=== PATIENT | male | born 1935 | race Caucasian/White ===

== ENCOUNTER 2018-02-15 07:06 | Day surgery (SDC) | payer MEDICARE, BC ==
--- NOTE | 2018-02-09 14:49 | HP ---
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 The pain has been intense, at a pain scale of 9 to 10. He has been treated with rest, pain medicines, all of which have failed. Also, the patient's current functional activity is less than 10% of normal. He is barely able to move from his bed to chair to bathroom, needs major assistance for any type of activity. The patient denies any radicular pain or paresthesias to the lower extremity. The patient recently underwent a MRI evaluation which disclosed an acute compression fracture of L1. He is now being brought in for a surgical kyphoplasty and fracture stabilization of L1. Procedure has been outlined to him and his family. Handouts were given. They understand the procedure and have consented to it. ALLERGIES: To statins and also morphine. CURRENT MEDICATIONS: Include Tylenol No. 3, vitamins, Celexa, Zestril, colestipol, Norvasc, Nitrostat, Klonopin, Xanax, Lasix, Antivert, Protonix, Proventil, also multivitamins, calcium supplements. PAST MEDICAL HISTORY: He has a history of hypertension. He has had increased cholesterol. Also noted to have diabetes type 2 along with history of myocardial infarctions with previous heart stents. PAST SURGICAL HISTORY: Positive. He has had right total knee replacement, right shoulder surgery, cardiac stents x3, tonsillectomy, and also notes that with the anesthesia, he is very slow for recovery, especially after any type of general anesthesia. Denies any bleeding history or blood clot history. SOCIAL HISTORY: He is a nonsmoker. Alcohol is very occasional and rarely. PHYSICAL EXAMINATION: GENERAL: Today reveals a well-developed, well-nourished, obese, 82-year-old male in severe distress. HEAD, EYES, EARS, NOSE, AND THROAT: Normocephalic. NECK: Supple. CHEST: Clear. COR: Regular rate. ABDOMEN: Soft. : Intact. NEUROLOGIC: Examination of lumbar spine reveals severe pain on direct pressure and palpation over the thoracolumbar junction area. The patient has positive paravertebral muscle spasm. He has negative nerve tension signs. RADIOLOGY: The patient underwent MRI evaluation on 02/09/2018, which disclosed acute compression fracture of L1. ASSESSMENT: Acute osteoporotic compression fracture, L1, intractable pain. PLAN: The patient is to undergo surgical kyphoplasty and fracture stabilization. Procedure has been outlined to him and his family. They understand the procedure and have consented to it. MMBENJI /[id number] WALLY
[~2018-02-15 07:06] MED LIST: Lactated Ringers 1,000 ML IV SCH; Lidocaine 1%/Sod Bicarbonate in NS 8.4% 1 ML Syringe IDERM PRN; Sodium Chloride 0.9% 10 ML Syringe FLUSH PRN
[2018-02-15] MEDS ORDERED: Lidocaine 1% with EPINEPHrine 1:100,000 20 ML MDV ONE ×2 (07:20→08:34)
[2018-02-15] MEDS ORDERED: Iopamidol 612 MG/ML 50 ML SDV ONE (07:21)
[2018-02-15] MEDS ORDERED: Albuterol 0.083% 2.5 MG/3 ML Neb Soln NEB ONE (07:25)
[2018-02-15] MEDS ORDERED: Sodium Chloride 0.9% 50 ML SDV ONE (07:27)
[2018-02-15] MEDS ORDERED: Acetaminophen/Codeine 300-30 MG Tab PO PRN (07:47)
[2018-02-15] MEDS ORDERED: Ketorolac 15 MG/ML SDV IVPUSH PRN (07:47)
[2018-02-15] MEDS ORDERED: Vancomycin 1 GM SDV ONE (07:47)
[2018-02-15] MEDS ORDERED: Propofol 200 MG/20 ML SDV ONE (07:48)
[2018-02-15] MEDS ORDERED: Ketamine 500 mg/10 ML MDV ONE (07:49)
[2018-02-15] MEDS ORDERED: fentaNYL 100 MCG/2 ML SDV ONE (07:49)
[2018-02-15] MEDS ORDERED: Lidocaine 1% 6 ML ONE (08:19)
[2018-02-15] MEDS ORDERED: Sodium Chloride 0.9% 100 ML ONE (08:22)
[2018-02-15] MEDS ORDERED: ceFAZolin 1 GM Vial ONE (08:25)
--- NOTE | 2018-02-15 08:51 | PCM.PREANE ---
Preanesthetic Assessment - Anesthesia/Transfusion/Family Hx Anesthesia History: Prior Anesthesia Reaction Type of Anesthesia Reaction: Excessive Somnolence Other Type of Anesthesia Reaction Comment: "Difficulty with breathing tube" Very sore throat. Family History of Anesthesia Reaction: No - Review of Systems General: Other (Very Hard of hearing. Bilateral hearing aids. ) Pulmonary: No Symptoms, Other (Sleep Apnea. Uses CPAP. ) Cardiovascular: No Symptoms, Other (History of stents/CAD. Follows with cardiology. Denies chest pain. ) Gastrointestinal: No Symptoms, Other (GERD, controlled. ) Neurological: Difficulty Walking (Back/knee pain. ), Gait Disturbance (Uses a walker. ) Other: Reports: Thyroid Problems, Depression - Physical Assessment NPO Status Date: 02/15/18 NPO Status Time: 07:32 O2 Sat by Pulse Oximetry: 90 Respiratory Rate: 18 Vital Signs: Last Vital Signs Temp 36.1 C 02/15/18 07:08 Pulse 75 02/15/18 07:08 Resp 18 02/15/18 07:08 BP 142/71 H 02/15/18 07:08 Pulse Ox 90 L 02/15/18 07:08 Height: 1.83 m Weight: 116.6 kg ASA Class: 3 Mental Status: Alert & Oriented x3 Airway Class: Mallampati = 3 Dentition: Reports: Normal Dentition Thyro-Mental Finger Breadths: 3 Mouth Opening Finger Breadths: 3 ROM/Head Extension: Full Lungs: Decreased Breath Sounds, Wheezing (Noted in upper lobes. Resolved with breathing treatment. ) - Lab Values: Laboratory Last Values POC Glucose 108 mg/dL (83-110) 02/15/18 07:25 - Allergies Allergies/Adverse Reactions: Allergies Allergy/AdvReac Type Severity Reaction Status Date / Time hydrocodone AdvReac Anxiety Verified 02/15/18 08:04 morphine AdvReac Vomiting Verified 02/15/18 08:04 Oekezhd-Ntq-Agy Reductase AdvReac Muscle Verified 02/15/18 08:04 Inhibitor Aches - Anesthesia Plan Beta Louis: Metoprolol Med Last Dose Date: 02/15/18 Med Last Dose Time: 07:30 - Acknowledgements Anesthesia Type Planned: MAC Pt an Appropriate Candidate for the Planned Anesthesia: Yes Alternatives and Risks of Anesthesia Discussed w Pt/Guardian: Yes Pt/Guardian Understands and Agrees with Anesthesia Plan: Yes PreAnesthesia Questionnaire Cardiovascular History: Reports: CAD, High Cholesterol, Hypertension, PTCA Respiratory History: Reports: Sleep Apnea Gastrointestinal History: Reports: Diverticulosis, Gastritis, GERD, Hiatal Hernia Genitourinary History: Reports: None [employer]IAN History: Reports: None Musculoskeletal History: Reports: Osteoarthritis, Other (See Below) Other Musculoskeletal History: restless leg syndrome, bursitis, knee injections Neurological History: Reports: None Psychiatric History: Reports: Depression, Panic Attack, Other (See Below) Other Psychiatric History: insomnia Endocrine/Metabolic History: Reports: Diabetes, Type II, Hypothyroidism Hematologic History: Reports: None Immunologic History: Reports: None Oncologic (Cancer) History: Reports: None Dermatologic History: Reports: None - Past Surgical History HEENT Surgical History: Reports: Adenoidectomy, Tonsillectomy Cardiovascular Surgical History: Reports: None Respiratory Surgical History: Reports: None GI Surgical History: Reports: Colonoscopy, EGD Female Surgical History: Reports: None Male Surgical History: Reports: None Endocrine Surgical History: Reports: None Neurological Surgical History: Reports: None Musculoskeletal Surgical History: Reports: Knee Replacement Oncologic Surgical History: Reports: None Dermatological Surgical History: Reports: None - SUBSTANCE USE Smoking Status *Q: Never Smoker Recreational Drug Use History: No - HOME MEDS Home Medications: Home Meds ALPRAZolam [Xanax] 0.5 mg PO DAILY PRN 02/14/18 [History] Acetaminophen with Codeine [Tylenol with Codeine #3 Tablet] 1 - 2 tab PO Q4H PRN 02/14/18 [History] Aspirin [Adult Aspirin] 81 mg PO DAILY 02/14/18 [History] Calcium Carbonate/Vitamin D3 [Calcium 600 + Vit D 400 Softgl] 1 tab PO DAILY [History] Citalopram [Citalopram HBr] 30 mg PO DAILY 02/14/18 [History] Colestipol [Colestipol HCl] 4 gm PO DAILY 02/14/18 [History] Cyclobenzaprine [Flexeril] 10 mg PO TID 02/14/18 [History] Docusate Sodium [Colace] 100 mg PO BEDTIME 02/14/18 [History] Estazolam 2 mg PO BEDTIME 02/14/18 [History] Flaxseed Oil [Flax Oil] 1,000 mg PO QPM 02/14/18 [History] Flaxseed Oil [Flaxseed] 1,000 mg PO QAM 02/14/18 [History] Furosemide [Lasix] 20 mg PO DAILY 02/14/18 [History] Glimepiride [Amaryl] 1 mg PO DAILY 02/14/18 [History] Glucosamine HCl/Chondr Dukes A Na [Osteo Bi-Flex Caplet] 1 tab PO DAILY 02/14/18 [ History] Lisinopril 10 mg PO DAILY 02/14/18 [History] Magnesium Oxide 250 mg PO DAILY 02/14/18 [History] Meclizine [Antivert] 25 mg PO TID PRN 02/14/18 [History] Metoprolol Succinate 100 mg PO DAILY 02/14/18 [History] Nitroglycerin [Nitrostat] 0.4 mg SL ASDIRECTED PRN 02/14/18 [History] [place]-3 Fatty Acids [[place]-3] 400 mg PO DAILY 02/14/18 [History] Saw/Vit E/Sod Lisa/Lyc/Beta/Pyg [Prostate Health Caplet] 2 mg PO BEDTIME [History] Simethicone 125 mg PO ASDIRECTED PRN 02/14/18 [History] amLODIPine Besylate [Norvasc] 5 mg PO DAILY 02/14/18 [History] clonazePAM [Clonazepam] 1 mg PO BEDTIME 02/14/18 [History] - CURRENT (IN HOUSE) MEDS Current Meds: Current Medications Acetaminophen/Codeine Phosphate (Tylenol With Codeine No.3 300mg/30mg) 1 - 2 tab PO Q4H PRN PRN Reason: Pain Lactated Ringer's (Ringers, Lactated) 1,000 mls @ 125 mls/hr IV ASDIRECTED PAYAL Stop: 02/15/18 23:00 Last Admin: 02/15/18 07:28 Dose: 125 mls/hr Ketorolac Tromethamine (Toradol) 15 mg IVPUSH Q6H PRN PRN Reason: Pain (severe 7-10) Lidocaine/Sodium Bicarbonate (Buffered Lidocaine 1% In Ns 8.4%) 0.25 ml IDERM ONETIME PRN PRN Reason: Prior to IV Start Stop: 02/15/18 18:00 Sodium Chloride (Saline Flush) 10 ml FLUSH ASDIRECTED PRN PRN Reason: Keep Vein Open Stop: 02/15/18 18:00 Discontinued Medications Albuterol (Proventil Neb Soln) 2.5 mg NEB ONETIME ONE Stop: 02/15/18 07:26 Last Admin: 02/15/18 07:46 Dose: 2.5 mg Cefazolin Sodium (Ancef) Confirm Administered Dose 3 gm .ROUTE .STK-MED ONE Stop: 02/15/18 08:26 Fentanyl (Sublimaze) Confirm Administered Dose 100 mcg .ROUTE .STK-MED ONE Stop: 02/15/18 07:50 Lidocaine HCl (Xylocaine-Mpf 1%) Confirm Administered Dose 6 mls @ as directed .ROUTE .STK-MED ONE Stop: 02/15/18 08:20 Sodium Chloride (Normal Saline) Confirm Administered Dose 100 mls @ as directed .ROUTE .STK-MED ONE Stop: 02/15/18 08:23 Iopamidol (Isovue-300 (61%)) Confirm Administered Dose 50 ml .ROUTE .STK-MED ONE Stop: 02/15/18 07:22 Ketamine HCl (Ketalar) Confirm Administered Dose 500 mg .ROUTE .STK-MED ONE Stop: 02/15/18 07:50 Lidocaine/Epinephrine (Xylocaine 1% With Epinephrine 1:100,000) Confirm Administered Dose 20 ml .ROUTE .STK-MED ONE Stop: 02/15/18 07:21 Lidocaine/Epinephrine (Xylocaine 1% With Epinephrine 1:100,000) Confirm Administered Dose 20 ml .ROUTE .STK-MED ONE Stop: 02/15/18 08:35 Propofol (Diprivan 20 Ml) Confirm Administered Dose 600 mg .ROUTE .STK-MED ONE Stop: 02/15/18 07:49 Sodium Chloride (Normal Saline) Confirm Administered Dose 50 ml .ROUTE .STK-MED ONE Stop: 02/15/18 07:28 Vancomycin HCl (Vancomycin) Confirm Administered Dose 1 gm .ROUTE .STK-MED ONE Stop: 02/15/18 07:48
[2018-02-15] MEDS ORDERED: Ondansetron 4 MG/2 ML SDV ONE (08:52)
--- NOTE | 2018-02-15 09:13 | PCM48HPAN ---
Post Anesthesia Note - EVALUATION WITHIN 48HRS OF ANESTHETIC Vital Signs in Normal Range: Yes Patient Participated in Evaluation: Yes Respiratory Function Stable: Yes Airway Patent: Yes Cardiovascular Function Stable: Yes Hydration Status Stable: Yes Pain Control Satisfactory: Yes Nausea and Vomiting Control Satisfactory: Yes Mental Status Recovered: Yes Pulse Rate: 64 SaO2: 94 Resp Rate: 17 Temperature: 37.7 C Blood Pressure: 133/60
--- NOTE | 2018-02-15 10:22 | CR ---
Lumbar spine: Four fluoroscopic spot views were obtained centered to the thoracolumbar junction. Study obtained utilizing C-arm device. Exam shows vertebroplasty procedure within L1. Fluoroscopy time given as 369.6 seconds. Impression: 1. Study showing vertebroplasty procedure. Diagnostic code #2
--- NOTE | 2018-02-16 08:28 | OR ---
DATE OF OPERATION: 02/15/2018 SURGEON: Srinivasa Bentley MD PREOPERATIVE DIAGNOSIS: Acute compression fracture, osteoporotic L1 with intractable pain. POSTOPERATIVE DIAGNOSIS: Acute compression fracture, osteoporotic L1 with intractable pain. ANESTHESIA: Sedation with local. OPERATION PERFORMED: 1. Kyphoplasty fracture stabilization of L1 vertebral body. 2. Biopsy of L1 vertebral body. DESCRIPTION OF PROCEDURE: The patient was taken to the operative room in supine and was placed under light sedation anesthesia. Due to the discomfort, the patient was then transferred to the operating table in a prone position, and once positioned, fluoroscopy was brought in to conchita the levels of the L1 compression fracture and the pedicles. Once that was completed, the operation proceeded with prepping and draping of the lumbar spine by standard technique and then with fluoroscopy guidance, the area over the L1 vertebral body pedicles on the right and left side was infiltrated with 1% lidocaine and epinephrine. Once that was completed, the operation proceeded with stab incision being placed on the right and left side over the pedicles. The kyphoplasty cannula instrumentation was then carried down to the pedicle and angulated into the vertebral body through the pedicle to the posterior aspect. Once in position on both the right and left side, biopsies were taken and then balloons were placed into the vertebral body and inflated. The operation then proceeded with placement of cement in the vertebral body. The 8 mL of cement was then placed in the vertebral body with excellent filling, and especially this superior endplate where the main fracture and blood hematoma formation had occurred was filled with cement. Once that was completed, the instruments were withdrawn. The hard copy x-rays were taken and these were found to be very satisfactory. The wound was then closed with 3-0 Prolene and standard dressings were applied. This patient tolerated this whole procedure well and he left the operating room in stable condition to his room for recovery. ESTIMATED BLOOD LOSS: MMODAL /[id number]
== END 2018-02-15 11:29 | disposition home or self-care (01) ==
LOC: JD.SDS 07:06
PROVIDERS: ATTEND Specialist
DX: S32.019A Unspecified fracture of first lumbar vertebra, initial encounter for closed fracture (principal); M81.0 Age-related osteoporosis without current pathological fracture; I10 Essential (primary) hypertension; E11.9 Type 2 diabetes mellitus without complications; E78.00 Pure hypercholesterolemia, unspecified; I25.2 Old myocardial infarction; E03.9 Hypothyroidism, unspecified; G47.33 Obstructive sleep apnea (adult) (pediatric); I25.10 Atherosclerotic heart disease of native coronary artery without angina pectoris; K21.9 Gastro-esophageal reflux disease without esophagitis; Z79.84 Long term (current) use of oral hypoglycemic drugs; Z79.82 Long term (current) use of aspirin; Z79.899 Other long term (current) drug therapy; W17.89XA Other fall from one level to another, initial encounter; Z88.5 Allergy status to narcotic agent; Z88.8 Allergy status to other drugs, medicaments and biological substances
CPT/HCPCS: 22514; 76000; 82962; 93005; 94640; C1713; J0690; J2405; J2704; J3010; J3370; J7030; J7120; Q9967; 00620; J2001